=== PATIENT | male | born 1940 | race Caucasian/White ===

== ENCOUNTER → 2016-08-28 | Outpatient (CLI) | payer OTHER ==
[~2016-08-28] MED LIST: ACETAZOLAMIDE250 MG PO; ASPIRIN PO; ASPIRINEC PO; BENTYL20 MG PO; BLADDER PILL; DORZOLAMIDE-TIM10 ML OU; FAMVIR500 MG PO; FISH OIL 1,0001 CAP PO; FLEXERIL PO; LORTAB 2.5/5001 TAB PO; LUMIGAN2.5 ML OP; MEDROL PO; MUCINEX COLD-F177 ML PO; VICODIN 5/500 T1 TAB PO; XALATAN OU
--- NOTE | ~2016-08-28 | US85 ---
[facility] A Service of [facility] & [facility] RADIOLOGY TEXT RESULTS PATIENT: DINA GILES LOCATION: CNIV : 40 UNIT #: [id number] AGE: [address]: SYBIL PARISH DO SEX: M ORDER DR: [id number] [facility] [address] [place], [place] [address] [id number] O MR#: [id number] Acc #: [id number] NAME: DINA GILES. : 1940 SEX: M STUDY DATE/TIME: 08/28/2016 15:47 UNIT: CNIV ROOM: STUDY DESCRIPTION: [facility] Attending Physician: Sybil Parish D.O. Ordering Physician: Sybil Parish D.O. Primary Care Physician: Sybil Parish D.O. MEDICAL IMAGING REPORT This report is preliminary unless electronic signature is present EXAM Right leg vein Doppler, 08/28. INDICATION Swelling in the calf and ankle for the last 2 weeks.. No known trauma. TECHNIQUE Venous ultrasound examination of the right lower extremity was performed using grayscale, spectral Doppler and color flow Doppler imaging. FINDINGS The examination is negative. There is no evidence of right lower extremity deep venous thrombus from the groin to the lower calf. Visualized greater saphenous vein is also patent. IMPRESSION Negative examination. No evidence of right lower extremity deep venous thrombosis. Dictated by... Sybil Valencia Jr., M.D. THIS IS AN ELECTRONICALLY VERIFIED REPORT Sybil Valencia Jr., M.D. at 08/29/2016 7:25 AM CURTIS/reji TD: 08/28/2016 17:07 JOB #: [id number] MEDICAL IMAGING REPORT Page 1 of 1 COPY
== END | disposition home or self-care (01) ==
LOC: CNIV 14:54
DX: M79.661 Pain in right lower leg (principal); M79.89 Other specified soft tissue disorders
CPT/HCPCS: 93971